=== PATIENT | male | born 1995 | race African-American/Black ===

== ENCOUNTER 2017-01-18 20:38 | Emergency (ER) | payer OTHER ==
[2017-01-18 20:48] VITALS: BP 118/68
[2017-01-18] MEDS ORDERED: IV NORMAL SALINE 500ML 500 ML IV ONE (21:00)
[2017-01-18 21:08] LABS: HEMOGLOBIN ISTAT 15.6 gm/dL; POTASSIUM ISTAT 3.8 mmol/L (3.5-5.0)
[2017-01-18] MEDS ORDERED: ONDANSETRON PF 4 MG/2 ML VIAL. IV ONE (21:15)
[2017-01-18] MEDS ORDERED: LOPE2CAP88 PO (21:25)
--- NOTE | 2017-01-18 21:25 | PHYS DOC ---
Past History Past Medical History: No Pertinent History Past Surgical History: No Surgical History Alcohol Use: None Drug Use: None Adult General Chief Complaint Chief Complaint: NAUSEA/VOMITING/DIARRHEA HPI HPI Patient is a 21-year-old with no significant past medical history who presents with complaints of vomiting and diarrhea both are nonbloody. No known sick contacts. No recent travel. Patient shots are all up-to-date. Patient received a prescription for ondansetron by his only been taking it today. Patient denies any fevers, chills, rashes, pain. Review of Systems Review of Systems Constitutional: Denies fever or chills [] Eyes: Denies change in visual acuity, redness, or eye pain [] HENT: Denies nasal congestion or sore throat [] Respiratory: Denies cough or shortness of breath [] Cardiovascular: No . GI: Denies abdominal pain, bloody stools. Yes to diarrhea and vomiting [] : Denies dysuria or hematuria [] Musculoskeletal: Denies back pain or joint pain [] Integument: Denies rash or skin lesions [] Neurologic: Denies headache, focal weakness or sensory changes [] Endocrine: Denies polyuria or polydipsia [] Current Medications Current Medications Current Medications Medications (Trade) Dose Ordered Sig/Daniella Start Time Stop Time Status Last Admin Dose Admin Ondansetron HCl (Zofran) 4 mg 1X ONCE 01/18/17 21:15 01/18/17 21:16 DC 01/18/17 21:10 4 MG Sodium Chloride 500 ml @ 0 mls/hr 1X ONCE 01/18/17 21:00 01/18/17 21:01 DC 01/18/17 21:10 500 MLS/HR Allergies Allergies Allergies Coded Allergies Type Severity Reaction Last Updated Verified No Known Allergies Allergy Unknown 01/18/17 Yes Physical Exam Physical Exam Constitutional: Well developed, well nourished, no acute distress, non-toxic appearance. Smiling during exam HENT: Normocephalic, atraumatic, oropharynx dry, no oral exudates, nose normal. [] Eyes: EOMI, conjunctiva normal, no discharge. [] Neck: Normal range of motion, no tenderness, supple, no stridor. [] Cardiovascular:Heart rate regular rhythm, no murmur, normal perfusion Lungs & Thorax: Bilateral breath sounds clear to auscultation, no tachypnea Abdomen: Bowel sounds normal, soft, no tenderness, no masses, no pulsatile masses. [] Skin: Warm, dry, no erythema, no rash. [] Back: No tenderness, no CVA tenderness. [] Extremities: No tenderness, no cyanosis, ROM intact, no edema. [] Neurologic: Alert and oriented X 3, normal motor function, ambulates in the ED with normal gait and without assistance no focal deficits noted. [] Psychologic: Affect normal, judgement normal, mood normal. [] Current Patient Data Vital Signs Vital Signs Date Time Temp Pulse Resp B/P (MAP) Pulse Ox O2 Delivery O2 Flow Rate FiO2 01/18/17 20:48 98.6 75 18 99 Room Air Lab Results Laboratory Tests Test 01/18/17 21:02 POC Hemoglobin 15.6 gm/dL POC Hematocrit 46 % POC Sodium 140 mmol/L (135-145) POC Potassium 3.8 mmol/L (3.5-5.0) POC Chloride 101 mmol/L (98-110) POC Total CO2 29 mmol/L (23-32) Anion Gap 15 mmol/L (6-14) H POC Blood Urea Nitrogen 14 mg/dL (8-26) POC Creatinine 1.2 mg/dL (0.5-1.4) Glucose Level 80 mg/dL (60-99) POC Ionized Calcium (Christine) 1.26 mmol/L (1.13-1.32) EKG EKG [] Radiology/Procedures Radiology/Procedures [] Course & Med Decision Making Course & Med Decision Making Pertinent Labs and Imaging studies reviewed. (See chart for details), specifically i-STAT: Unremarkable [] Dragon Disclaimer Dragon Disclaimer This chart was dictated in whole or in part using Voice Recognition software in a busy, high-work load, and often noisy Emergency Department environment. It may contain unintended and wholly unrecognized errors or omissions. Departure Departure: Impression: Primary Impression: Vomiting and diarrhea Additional Impression: Dehydration Disposition: 01 HOME, SELF-CARE Condition: STABLE Referrals: UNKNOWN (PCP) Patient Instructions: Diarrhea, [id number], Diet for Diarrhea, Adult, Nausea and Vomiting Additional Instructions: Please follow-up with your doctor in 3-5 days if no resolution of symptoms or worsening symptoms develop Scripts Loperamide HCl (Imodium A-D) 2 Mg Capsule 2 MG PO TID for 3 Days, #9 CAP Prov: Sulma TOLEDO MD 01/18/17 Problem Qualifiers Sulma TOLEDO MD Jan 18, 2017 21:25
== END 2017-01-18 21:35 | disposition home or self-care (01) ==
LOC: ER 20:38
DX: E86.0 Dehydration (principal); R11.10 Vomiting, unspecified; R19.7 Diarrhea, unspecified
CPT/HCPCS: 36415; 80047; 96374; 99284; J2405; J7040

== ENCOUNTER 2017-07-09 12:17 | Emergency (ER) | payer OTHER ==
[~2017-07-09] VITALS: Ht 185.4 cm; Wt 81.7 kg
[~2017-07-09 12:17] MED LIST: LOPE2CAP88 PO
--- NOTE | 2017-07-09 13:06 | RAD ---
3 views left foot 07/09/2017 Clinical indication: Left foot pain. Comparison: None. Findings: No acute fracture or traumatic malalignment. The joint spaces are maintained. Normal bony alignment. The visualized soft tissues are unremarkable. Impression: No acute osseous abnormality.
--- NOTE | 2017-07-09 13:34 | PHYS DOC ---
General Chief Complaint: FOOT INJURY PAIN Stated Complaint: FOOT PAIN Time Seen by MD: 12:30 Source: patient Exam Limitations: no limitations Problems: History of Present Illness Initial Comments Patient is a 22-year-old male who comes to the ED complaining of left foot pain. Patient states that he's had pain at the medial aspect of his left foot only when standing for about the last 2 weeks. He denies any trauma or other inciting events, he does state that she's been wearing the same foot were for the past 2 years. He denies numbness tingling weakness or radiating symptoms, he points to the medial aspect of his navicular bone and upon initial observation it is obvious that he has flat feet. He has no bruising or swelling and has not seen his doctor for this and is had no pre-arrival treatment. Timing/Duration: other Severity: moderate Modifying Factors: worse with movement, improves with rest Associated Symptoms: other Allergies: Coded Allergies: No Known Allergies (Verified Allergy, Unknown, 01/18/17) Past Medical History Medical History: no pertinent history Surgical History: noncontributory Social History Smoker: non-smoker Alcohol: none Drugs: none Review of Systems Constitutional: denies chills, denies fever Respiratory: denies cough, denies shortness of breath Cardiovascular: denies chest pain, denies palpitations Gastrointestinal: denies nausea, denies vomiting Musculoskeletal: see HPI Skin: see HPI Psychiatric/Neurological: see HPI Physical Exam General Appearance: WD/WN, no apparent distress Neck: full range of motion, supple Respiratory: normal breath sounds, no respiratory distress Cardiovascular: normal peripheral pulses Extremities: other (pedis planus left foot but tenderness at the navicular no swelling or ecchymosis most likely simple flat feet needing arches. If no improvement he valve her stress reaction versus stress fracture) Neurologic/Psychiatric: dietetic tech II-XII nml as tested, no motor/sensory deficits, alert, normal mood/affect, oriented x 3 Skin: normal color, warm/dry Orders, Labs, Meds PATIENT: HEATHER SPENCE ACCOUNT: [id number] : 1995 LOCATION: ER AGE: 22 SEX: M EXAM STATUS: REG ER ORD. PHYSICIAN: JOEY BATES DO REASON: trauma/pain PROCEDURE: FOOT LEFT 3V 3 views left foot 07/09/2017 Clinical indication: Left foot pain. Comparison: None. Findings: No acute fracture or traumatic malalignment. The joint spaces are maintained. Normal bony alignment. The visualized soft tissues are unremarkable. Impression: No acute osseous abnormality. DICTATED AND SIGNED BY: CARMEN WYLIE MD DATE: 07/09/17 9535 CC: CLARENCE SANCHEZ; JOEY BATES DO ~ pes planus dropped Navicular I discussed arch supports ice massage postop shoe and temporary limiting activity. Discussed [id number] prescription medications and close PCP follow-up patient expressed agreement and understanding of treatment plan. Departure Time of Disposition: 14:23 Disposition: 01 HOME, SELF-CARE Diagnosis: pes planus Condition: GOOD Patient Instructions: Flat Feet Additional Instructions: Wear the postop shoe as needed for symptom control. Frozen water bottle ice massages as discussed. Arch supports in all footwear as discussed. No prolonged standing or running for 5 days. Prescription: Naprosyn Follow-up on Post in 1-2 weeks for recheck. If symptoms persist may need evaluation to rule out stress reaction or stress fracture. Return to ED with new or changing symptoms. JOEY BATES DO Jul 09, 2017 13:34
[2017-07-09 14:16] VITALS: BP 127/75
[2017-07-09] MEDS ORDERED: NAPR500T4 PO (14:29)
== END 2017-07-09 14:16 | disposition home or self-care (01) ==
LOC: ER 12:17
DX: M21.42 Flat foot [pes planus] (acquired), left foot (principal)
CPT/HCPCS: 73630; 99284

== ENCOUNTER 2018-01-29 14:36 | Emergency (ER) | payer OTHER ==
[~2018-01-29] VITALS: Ht 185.4 cm; Wt 76.7 kg
[~2018-01-29 14:36] MED LIST changes: +NAPR-514 PO
--- NOTE | 2018-01-29 14:41 | PHYS DOC ---
Past History Past Medical History: No Pertinent History Past Surgical History: No Surgical History, Other Smoking: Non-smoker Alcohol Use: None Drug Use: None Adult General Chief Complaint Chief Complaint: SEXUALLY TRANSMITTED DISEASE HPI HPI 22-year-old male presents with 4 day history of dysuria with white discharge noted from penis. Patient does have a history of diagnosis of chlamydia last month (01/10/18). Patient reported he had received treatment. Patient reports girl whom he has had sexual contact with reportedly had negative STD check recently. Denies any fever or chills. Denies nausea/chronic/diarrhea. Denies rash. Review of Systems Review of Systems Constitutional: Denies fever or chills [] GI: Denies abdominal pain, nausea, vomiting, bloody stools or diarrhea [] : Reports dysuria, reports penile discharge Integument: Denies rash or skin lesions [] Complete systems were reviewed and found to be within normal limits, except as documented in this note. Allergies Allergies Allergies Coded Allergies Type Severity Reaction Last Updated Verified No Known Allergies Allergy Unknown 01/18/17 Yes Physical Exam Physical Exam Constitutional: Well developed, well nourished, no acute distress, non-toxic appearance. [] HENT: Normocephalic, atraumatic, oropharynx moist Eyes: PERRL, EOMI, conjunctiva normal, no discharge. [] Neck: Normal range of motion, no tenderness, supple, no stridor. [] Cardiovascular:Heart rate regular rhythm, no murmur [] Lungs & Thorax: Bilateral breath sounds clear to auscultation [] Abdomen: soft, no tenderness, : Circumcised male, no rash, no penile discharge noted, nontender, cremasteric reflex intact Skin: Warm, dry, no erythema, no rash. [] Neurologic: Alert and oriented X 3, speech normal Psychologic: Affect normal, judgement normal, mood normal. [] EKG EKG [] Radiology/Procedures Radiology/Procedures [] Course & Med Decision Making Course & Med Decision Making Pertinent Labs and Imaging studies reviewed. (See chart for details) Patient presents with concern for possible STD given dysuria and penile discharge. History of recent diagnosis for Chlamydia for which patient had received treatment. UA obtained. Chlamydia/gonorrhea cultures pending. Empiric antibiotics initiated. Patient stable for discharge with outpatient follow-up with PCP. Discussed findings and plan with patient, who acknowledges understanding and agreement. Dragon Disclaimer Dragon Disclaimer This electronic medical record was generated, in whole or in part, using a voice recognition dictation system. Departure Departure: Impression: Primary Impression: Concern about sexually transmitted disease in male without diagnosis Disposition: 01 HOME, SELF-CARE Condition: STABLE Referrals: CLARENCE SANCHEZ (PCP) Patient Instructions: Sexually Transmitted Disease, [id number] WONG CASTANO DO Jan 29, 2018 14:41
[2018-01-29] MEDS ORDERED: cefTRIAXone IM 250 MG VIAL IM ONE (14:45)
[2018-01-29] MEDS ORDERED: AZITHROMYCIN 250 MG TABLET. PO ONE (14:45)
[2018-01-29 15:12] VITALS: BP 138/79
[2018-01-29 15:23] LABS: BACTERIA,URINE 0 /HPF (0-FEW); BILIRUBIN,URINE NEG (NEG); CLARITY,URINE HAZY; COLOR,URINE YELLOW; GLUCOSE,URINE NEG (NEG); NITRITE,URINE NEG (NEG); SQUAMOUS EPITHELIAL CELL,UR FEW /LPF; UROBILINOGEN,URINE 0.2 mg/dL (0.2 mg/dL)
== END 2018-01-29 15:13 | disposition home or self-care (01) ==
LOC: ER 14:36
DX: Z11.3 Encounter for screening for infections with a predominantly sexual mode of transmission (principal)
CPT/HCPCS: 36415; 81001; 87086; 87491; 87591; 96372; 99284; J0456; J0696

== ENCOUNTER 2018-05-20 16:45 | Emergency (ER) | payer OTHER ==
[~2018-05-20] VITALS: Ht 190.5 cm; Wt 78.0 kg
[2018-05-20 16:57] VITALS: BP 126/78
--- NOTE | 2018-05-20 17:17 | PHYS DOC ---
Past History Past Medical History: No Pertinent History Past Surgical History: No Surgical History, Other Smoking: Non-smoker Alcohol Use: None Drug Use: None Adult General Chief Complaint Chief Complaint: LACERATION/AVULSION [facility] HPI Patient is a 23 year old male who presents with complaining of injury to face with a laceration. Patient states he was running and hit his head against a friend head without loss of consciousness or other injuries. Patient complaining of a laceration of right eyebrow. Patient is up-to-date with tetanus immunization and rated his pain 6/10 and does not want to have pain medication in ER. Review of Systems Review of Systems Constitutional: Denies fever or chills [] Eyes: Denies change in visual acuity, redness, or eye pain [] HENT: Denies nasal congestion or sore throat [] Respiratory: Denies cough or shortness of breath [] Cardiovascular: No additional information not addressed in HPI [] GI: Denies abdominal pain, nausea, vomiting, bloody stools or diarrhea [] : Denies dysuria or hematuria [] Musculoskeletal: Denies back pain or joint pain [] Integument: Denies rash or skin lesions [] Neurologic: Reports headache, denies focal weakness or sensory changes [] Endocrine: Denies polyuria or polydipsia [] All other systems were reviewed and found to be within normal limits, except as documented in this note. Allergies Allergies Allergies Coded Allergies Type Severity Reaction Last Updated Verified No Known Allergies Allergy Unknown 01/18/17 Yes Physical Exam Physical Exam Constitutional: Well developed, well nourished, no acute distress, non-toxic appearance. [] HENT: Normocephalic, 1 cm laceration of right side of face in lateral side and below eyebrow bilateral external ears normal, oropharynx moist, no oral exudates , nose normal. [] Eyes: PERRLA, EOMI, conjunctiva normal, no discharge. [] Neck: Normal range of motion, no tenderness, supple, no stridor. [] Cardiovascular:Heart rate regular rhythm, no murmur [] Lungs & Thorax: Bilateral breath sounds clear to auscultation [] Skin: Warm, dry, no erythema, no rash. [] Back: No tenderness, no CVA tenderness. [] Extremities: No tenderness, no cyanosis, no clubbing, ROM intact, no edema. [] Neurologic: Alert and oriented X 3, normal motor function, normal sensory function, no focal deficits noted. [] Psychologic: Affect normal, judgement normal, mood normal. [] Current Patient Data Vital Signs Vital Signs Date Time Temp Pulse Resp B/P (MAP) Pulse Ox O2 Delivery O2 Flow Rate FiO2 05/20/18 16:57 97.9 76 16 99 Room Air EKG EKG [] Radiology/Procedures Radiology/Procedures [] Course & Med Decision Making Course & Med Decision Making discharge: I've spoken with the patient and/or caregivers. I've explained the patient's condition, diagnosis and treatment plan based on information available to me at this time. I've answered the patient's and/or caregivers questions and addressed any concerns. The patient and/or caregivers have a good understanding the patient's diagnosis, condition and treatment plan as can be expected at this point. Vital signs have been stabilized. The patient's condition is stable for discharge from the emergency department. The patient will pursue further outpatient evaluation with her primary care provider or other designated consulting physician as outlined in the discharge instructions. Patient and/or caregivers are agreeable to this plan of care and follow-up instructions have been explained in detail. The patient and/or caregivers have received these instructions in written format and expressed understanding of these discharge instructions. The patient and her caregivers are aware that if any significant change in condition or worsening of symptoms should prompt him to immediately return to this of the closest emergency department. If an emergent department is not readily available I would encourage him to call 911. Oneyda Disclaimer Dragon Disclaimer This electronic medical record was generated, in whole or in part, using a voice recognition dictation system. Laceration Repair Lac Repair Indication: Right eyebrow laceration Procedure: The patient was placed in the appropriate position after cleaning 1 cm laceration of right eyebrow was repaired with Dermabond and Steri-Strip. Total repaired wound length: 1 cm Other Items: None The patient tolerated the procedure well Complications: None. Departure Departure: Impression: Primary Impression: Facial laceration Additional Impression: Head injury Disposition: HOME, SELF-CARE (at 1716) Condition: IMPROVED Referrals: CLARENCE SANCHEZ (PCP) Patient Instructions: Facial Laceration, Head Injury, Adult, Tissue Adhesive Wound Care Additional Instructions: May take [id number] ibuprofen as needed for pain Follow-up with your primary care physician in 3-5 days Return to ER if not getting better Problem Qualifiers ADRIENNE HOWARD MD May 20, 2018 17:17
== END 2018-05-20 17:25 | disposition home or self-care (01) ==
LOC: ER 16:45
DX: S01.111A Laceration without foreign body of right eyelid and periocular area, initial encounter (principal); S09.90XA Unspecified injury of head, initial encounter; W50.0XXA Accidental hit or strike by another person, initial encounter; Y93.02 Activity, running; Y92.89 Other specified places as the place of occurrence of the external cause; Y99.8 Other external cause status
CPT/HCPCS: 12011; 99283

== ENCOUNTER 2018-09-13 00:34 | Emergency (ER) | payer OTHER ==
[~2018-09-13] VITALS: Ht 182.9 cm; Wt 79.9 kg
[2018-09-13 00:34] VITALS: BP 124/86
[2018-09-13] MEDS ORDERED: PRED20TA PO (01:13)
--- NOTE | 2018-09-13 01:13 | PHYS DOC ---
Past History Past Medical History: No Pertinent History Past Surgical History: No Surgical History, Other Smoking: Non-smoker Alcohol Use: None Drug Use: None Adult General Chief Complaint Chief Complaint: Sinus pressure/congestion HPI HPI 23-year-old male presents with report of sinus pressure and congestion 5 days. Denies fever or chills. Denies known sick contacts. Patient does report associated productive cough. Reports his been using [id number] remedies including TheraFlu, Mucinex, etc. Without significant relief. Denies known sick contacts. Review of Systems Review of Systems Constitutional: Denies fever or chills [] Eyes: Denies change in visual acuity, redness, or eye pain [] HENT: Reports nasal congestion; denies sore throat [] Respiratory: Reports productive cough; denies shortness of breath [] Cardiovascular: Denies chest pain or palpitations GI: Denies abdominal pain, nausea, vomiting, or diarrhea [] : Denies dysuria or hematuria [] Musculoskeletal: Denies back pain or joint pain [] Integument: Denies rash or skin lesions [] Neurologic: Denies headache, focal weakness or sensory changes [] Complete systems were reviewed and found to be within normal limits, except as documented in this note. Current Medications Current Medications Current Medications Medications (Trade) Dose Ordered Sig/Daniella Start Time Stop Time Status Last Admin Dose Admin Prednisone (Prednisone) 40 mg 1X ONCE 09/13/18 01:15 09/13/18 01:16 UNV Allergies Allergies Allergies Coded Allergies Type Severity Reaction Last Updated Verified No Known Allergies Allergy Unknown 01/18/17 Yes Physical Exam Physical Exam Constitutional: Well developed, well nourished, no acute distress, non-toxic appearance. [] HENT: Normocephalic, atraumatic, bilateral TMs normal, oropharynx moist, no pharyngeal erythema, nasal congestion noted, maxillary sinus pressure/ tenderness on palpitation Eyes: PERRL, EOMI, conjunctiva normal, no discharge. [] Neck: Normal range of motion, no tenderness, supple, no meningeal signs Cardiovascular: Heart rate regular rhythm, no murmur [] Lungs & Thorax: Bilateral breath sounds clear to auscultation [] Skin: Warm, dry, no erythema, no rash. [] Extremities: No tenderness, ROM intact, no edema. [] Neurologic: Alert and oriented X 3, no focal deficits noted. [] Psychologic: Affect normal, judgement normal, mood normal. [] EKG EKG [] Radiology/Procedures Radiology/Procedures [] Course & Med Decision Making Course & Med Decision Making Patient presents with history of present illness and physical exam consistent for sinusitis. Patient is afebrile. Symptomatic treatment provided with oral steroid. Patient stable for discharge with outpatient follow-up with PCP. Discussed findings and plan with patient and family, who acknowledge understanding and agreement. Dragon Disclaimer Dragon Disclaimer This electronic medical record was generated, in whole or in part, using a voice recognition dictation system. Departure Departure: Impression: Primary Impression: Sinusitis Disposition: HOME, SELF-CARE Condition: STABLE Referrals: CLARENCE SANCHEZ (PCP) Patient Instructions: Sinusitis, Mtxu-[id number] Scripts Prednisone (PREDNISONE) 20 Mg Tablet 2 TAB PO DAILY for Sinusitis, #8 TAB Prov: WONG CASTANO DO 09/13/18 Problem Qualifiers Primary Impression: Sinusitis Sinusitis location: maxillary Chronicity: acute Recurrence: non-recurrent Qualified Codes: J01.00 - Acute maxillary sinusitis, unspecified WONG CASTANO DO Sep 13, 2018 01:13
[2018-09-13] MEDS ORDERED: predniSONE 20 MG TABLET PO ONE (01:15)
[2018-09-13] MEDS ORDERED: predniSONE 20 MG TABLET ONE (01:17)
== END 2018-09-13 01:22 | disposition home or self-care (01) ==
LOC: ER 00:34
DX: J01.00 Acute maxillary sinusitis, unspecified (principal)
CPT/HCPCS: 99283; J7512

== ENCOUNTER 2018-10-14 12:04 | Emergency (ER) | payer OTHER ==
[~2018-10-14] VITALS: Ht 182.9 cm; Wt 80.2 kg
[~2018-10-14 12:04] MED LIST changes: +PRED20TA PO
[2018-10-14 13:12] LABS: BACTERIA,URINE 0 /HPF (0-FEW); BILIRUBIN,URINE NEG (NEG); CLARITY,URINE CLEAR; COLOR,URINE YELLOW; GLUCOSE,URINE NEG (NEG); NITRITE,URINE NEG (NEG); RBC,URINE 0 /HPF (0-2); UROBILINOGEN,URINE 0.2 mg/dL (0.2 mg/dL); WBC,URINE RARE /HPF (0-4)
--- NOTE | 2018-10-14 13:30 | PHYS DOC ---
Past History Past Medical History: No Pertinent History Past Surgical History: No Surgical History, Other Smoking: Non-smoker Alcohol Use: None Drug Use: None Adult General Chief Complaint Chief Complaint: SEXUALLY TRANSMITTED DISEASE HPI HPI Patient is a 23 year old male who presents to the emergency department requesting evaluation for possible sexually transmitted infection. The patient currently denies any symptoms including penile discharge, fever, nausea, dysuria, pelvic pain, abdominal pain, rash, or lesions. States that one year ago he was diagnosed with a Chlamydia infection. At that time he was having dysuria and abnormal penile discharge. Patient states that he is not having any of those symptoms at this time, but states that he wants to get checked to make sure that he has not contracted any infections. Patient states that he is sexually active with one female partner. He states that they have engaged in oral sex in vaginal intercourse. Denies rectal intercourse. Patient not having any abdominal pain or fever. Due to his prior experience he states that he tries to get himself checked every 6-12 months. Review of Systems Review of Systems Constitutional: Denies fever or chills [] Eyes: Denies change in visual acuity, redness, or eye pain [] HENT: Denies nasal congestion or sore throat [] Respiratory: Denies cough or shortness of breath [] Cardiovascular: No additional information not addressed in HPI [] GI: Denies abdominal pain, nausea, vomiting, bloody stools or diarrhea [] : Denies dysuria or hematuria [] Musculoskeletal: Denies back pain or joint pain [] Integument: Denies rash or skin lesions [] Neurologic: Denies headache, focal weakness or sensory changes [] All other systems were reviewed and found to be within normal limits, except as documented in this note. Allergies Allergies Allergies Coded Allergies Type Severity Reaction Last Updated Verified No Known Allergies Allergy Unknown 01/18/17 Yes Physical Exam Physical Exam Constitutional: Well developed, well nourished, no acute distress, non-toxic appearance. [] HENT: Normocephalic, atraumatic, bilateral external ears normal, oropharynx moist, no oral exudates, nose normal. [] Eyes: PERRLA, EOMI, conjunctiva normal, no discharge. [] Neck: Normal range of motion, no tenderness, supple, no stridor. [] Cardiovascular:Heart rate regular rhythm, no murmur [] Lungs & Thorax: Bilateral breath sounds clear to auscultation [] Abdomen: Bowel sounds normal, soft, no tenderness, no masses, no pulsatile masses. [] Skin: Warm, dry, no erythema, no rash. [] Back: No tenderness, no CVA tenderness. [] Extremities: No tenderness, no cyanosis, no clubbing, ROM intact, no edema. [] Neurologic: Alert and oriented X 3, normal motor function, normal sensory function, no focal deficits noted. [] Current Patient Data Vital Signs Vital Signs Date Time Temp Pulse Resp B/P (MAP) Pulse Ox O2 Delivery O2 Flow Rate FiO2 10/14/18 12:12 97.9 68 16 98 Room Air 10/14/18 12:10 112/59 (76) Lab Results Laboratory Tests Test 10/14/18 12:10 Urine Collection Type Unknown Urine Color Yellow Urine Clarity Clear Urine pH 6.5 Urine Specific [place] 1.025 Urine Protein Neg (NEG-TRACE) Urine Glucose (UA) Neg mg/dL (NEG) Urine Ketones (Stick) Neg mg/dL (NEG) Urine Blood Neg (NEG) Urine Nitrite Neg (NEG) Urine Bilirubin Neg (NEG) Urine Urobilinogen Dipstick 0.2 mg/dL (0.2 mg/dL) Urine Leukocyte Esterase Neg (NEG) Urine RBC 0 /HPF (0-2) Urine WBC Rare /HPF (0-4) Urine Squamous Epithelial Cells None /LPF Urine Bacteria 0 /HPF (0-FEW) Urine Mucus Slight /LPF EKG EKG Not performed[] Radiology/Procedures Radiology/Procedures Not performed[] Course & Med Decision Making Course & Med Decision Making Pertinent Labs and Imaging studies reviewed. (See chart for details) The patient's urinalysis shows no definitive evidence of active infection. Given absence of symptoms, I do not suspect patient requires antibiotic treatment at this time. I did order a gonorrhea and chlamydia culture from the urine. Results will be pending at time of discharge. Informed patient to continue with safe sex practices and return to emergency department for the development of any symptoms of sexually transmitted infection. Patient was understanding and in agreement with treatment plan.[] Dragon Disclaimer Dragon Disclaimer This electronic medical record was generated, in whole or in part, using a voice recognition dictation system. Departure Departure: Impression: Primary Impression: Medical condition not demonstrated Disposition: 01 HOME, SELF-CARE Condition: GOOD Referrals: ALLY ALEGRIA PA-C (PCP) Patient Instructions: Exam, Normal, Adult Additional Instructions: Return to the emergency department for any worsening symptoms. GINA VAZQUEZ MD Oct 14, 2018 13:30
[2018-10-14 13:46] VITALS: BP 110/56
== END 2018-10-14 13:44 | disposition home or self-care (01) ==
LOC: ER 12:04
DX: Z20.2 Contact with and (suspected) exposure to infections with a predominantly sexual mode of transmission (principal)
CPT/HCPCS: 36415; 81001; 87491; 87591; 99284